=== PATIENT | male | born 1985 | race Caucasian/White ===

== ENCOUNTER 2017-10-24 21:25 | Emergency (ER) | payer OTHER ==
[~2017-10-24] VITALS: Ht 182.9 cm; Wt 156.8 kg
[~2017-10-24 21:25] MED LIST: FLUT50SP EACH NARE; HYDR25TA5 PO; OMEP20TA30 PO
[2017-10-24 22:04] VITALS: BP 138/91; PULSE 83; RESP 20; TEMP 99.6; O2SAT 96
--- NOTE | 2017-10-24 23:09 | PD ---
HPI Chief Complaint: Cold / Flu Symptoms Time Seen by Provider: 23:07 Travel History International Travel<30 days: No Contact w/Intl Traveler<30days: No Traveled to known affect area: No History of Present Illness HPI Patient complains of cough 2 weeks feels worse tonight, productive of brownish greenish sputum, patient is exposed to secondhand smoking, however he states that he has no history of smoking himself or any history of asthma. Patient denies any alleviating or aggravating factors. Patient denies any associated factors such as fever, rash, chest pain, back pain, flank pain, abdominal pain, nausea, vomiting, diarrhea. No known drug allergy Past medical history significant for hypertension, per patient he had a skull fracture and the shoulder tumor removed PFS Past Medical History Diminished Hearing: No Hypertension: Yes Tetanus Vaccination: > 5 Years Influenza Vaccination: No Past Surgical History Other Surgery: Yes (SKULL FX/SHOULDER TUMOR REMOVED) Social History Alcohol Use: Yes (SOCIAL) Tobacco Use: No Substance Use: No Allergies-Medications (Allergen,Severity, Reaction): Coded Allergies: No Known Allergies (Unverified Adverse Reaction, Unknown, 10/24/17) Reported Meds & Prescriptions Reported Meds & Active Scripts Active Hydrochlorothiazide 25 Mg Tab 25 Mg PO DAILY Review of Systems General / Constitutional: No: Fever Eyes: No: Visual changes HENT: No: Headaches Cardiovascular: No: Chest Pain or Discomfort Respiratory: Positive: Cough Gastrointestinal: No: Abdominal Pain Genitourinary: No: Dysuria Musculoskeletal: No: Pain Skin: No Rash Neurologic: No: Weakness Psychiatric: No: Depression Endocrine: No: Polydipsia Hematologic/Lymphatic: No: Easy Bruising Physical Exam Narrative GENERAL: SKIN: Warm and dry. HEAD: Atraumatic. Normocephalic. EYES: Pupils equal and round. No scleral icterus. No injection or drainage. ENT: No nasal bleeding or discharge. Mucous membranes pink and moist. NECK: Trachea midline. No JVD. No stridor CARDIOVASCULAR: Regular rate and rhythm. RESPIRATORY: No accessory muscle use. Diffuse rhonchi heard, scattered wheezing minimal/mild, good tidal volume GASTROINTESTINAL: Abdomen soft, non-tender, nondistended. MUSCULOSKELETAL: Extremities without clubbing, cyanosis, or edema. No obvious deformities. NEUROLOGICAL: Awake and alert. No obvious cranial nerve deficits. Motor grossly within normal limits. Five out of 5 muscle strength in the arms and legs. Normal speech. PSYCHIATRIC: Appropriate mood and affect; insight and judgment normal. Data Data Last Documented VS Vital Signs Date Time Temp Pulse Resp B/P (MAP) Pulse Ox O2 Delivery O2 Flow Rate FiO2 10/24/17 22:16 Room Air 10/24/17 22:04 99.6 83 20 138/91 (107) 96 Orders Orders Chest, Pa & Lat (10/24/17 23:09) Ciprofloxacin (Cipro) (10/25/17 00:45) MDM Medical Decision Making Medical Screen Exam Complete: Yes Emergency Medical Condition: Yes Medical Record Reviewed: Yes Differential Diagnosis Bronchitis versus pneumonia versus pneumothorax versus pleural effusion Narrative Course Consistent with early pneumonia on x-ray Diagnosis Primary Impression: Pneumonia Patient Instructions: Community Acquired Pneumonia (DC), General Instructions Scripts Methylprednisolone Dosepak (Medrol Dosepak) 4 Mg Dspk 4 MG PO DIRECTED, #1 DSPK 0 Refills Per Pharmacist direction Prov: Roger Austin MD 10/25/17 Albuterol 6.7 GM Inh (Proventil Hfa 6.7 GM Inh) 90 Mcg/Act Aer 2 PUFF INH Q4-6H Y for SHORTNESS OF BREATH, #1 INHALER 0 Refills Prov: Roger Austin MD 10/25/17 Ciprofloxacin (Cipro) 500 Mg Tab 500 MG PO BID for Infection for 10 Days, #20 TAB 0 Refills Prov: Roger Austin MD 10/25/17 Disposition: 01 DISCHARGE HOME Condition: Stable Roger Austin MD October 24, 2017 23:09
--- NOTE | 2017-10-25 00:05 | RADRPT ---
EXAM DATE: 10/24/2017 11:32 PM EDT AGE/SEX: 32 years / Male INDICATIONS: Cough, chest congestion for 2 weeks CLINICAL DATA: This is the patient's initial encounter. Patient reports that signs and symptoms have been present for 2 weeks and indicates a pain score of 5/10. MEDICAL/SURGICAL HISTORY: None. None. COMPARISON: No prior [facility] exams available for comparison. FINDINGS: The heart size is normal. There is some minimal linear density at the lateral right midlung. No effus ion is seen. CONCLUSION: Minimal linear density at the right lateral mid lung likely related to minimal atelectasis or consoli dation. Electronically signed by: Tomás Villalta MD 10/25/2017 12:03 AM EDT
[2017-10-25] MEDS ORDERED: MEDR4PAK PO (00:33)
[2017-10-25] MEDS ORDERED: CIPR-9 PO (00:33)
[2017-10-25] MEDS ORDERED: ALBU6.7H INH (00:33)
[2017-10-25 00:45] VITALS: BP 156/88; PULSE 81; RESP 20; O2SAT 96
[2017-10-25] MEDS ORDERED: CIPROFLOXACIN 500 MG TAB PO ONE (00:45)
== END 2017-10-25 00:57 | disposition home or self-care (01) ==
LOC: PHEFT 21:25
DX: J18.9 Pneumonia, unspecified organism (principal); I10 Essential (primary) hypertension
CPT/HCPCS: 71046; 99283